=== PATIENT | female | born 1960 ===

== ENCOUNTER 2021-12-24 06:24 | Day surgery (SDC) | payer OTHER ==
[~2021-12-24] VITALS: Ht 172.7 cm; Wt 84.4 kg
[~2021-12-24 06:24] MED LIST: AZELASTINE HCL6 ML OPHT; BREO ELLIPTA I1 EACH IH; LOSARTAN-HCTZ1 EAC2 PO; METFORMIN HCL1000 M2 PO
[2021-12-24] MEDS ORDERED: NEURONTIN600 M1 PO (12:54)
[2021-12-24] MEDS ORDERED: POLY119PG PO (12:54)
[2021-12-24] MEDS ORDERED: PERCOCET 5-3251 EACH PO (12:54)
== END 2021-12-24 14:55 | disposition home or self-care (01) ==
LOC: CIR.AMB 06:24
PROVIDERS: ATTEND Surgery
DX: K43.0 Incisional hernia with obstruction, without gangrene (principal); Z20.822 Contact with and (suspected) exposure to COVID-19; Z88.8 Allergy status to other drugs, medicaments and biological substances; I10 Essential (primary) hypertension; J45.909 Unspecified asthma, uncomplicated; Z87.891 Personal history of nicotine dependence; E11.9 Type 2 diabetes mellitus without complications; Z79.84 Long term (current) use of oral hypoglycemic drugs